=== PATIENT | female | born 1970 | race Hispanic/Latino ===

== ENCOUNTER 2016-05-18 13:11 | Day surgery (SDC) | payer OTHER ==
[~2016-05-18] VITALS: Ht 162.6 cm; Wt 76.0 kg
[~2016-05-18 13:11] MED LIST: 0.9% Sodium Chloride 1,000 ML IV SCH; CITA10TA9 PO; NAPR220C11 PO; POLY17PO6 PO; RIZA10TA26 PO; Sodium Chloride LOK Flush 10 mL Syringe IV PRN; fentaNYL-PF 50 mCg/mL 2 mL Inj IVPUSH PRN
[2016-05-18 13:53] VITALS: BP 107/68; PULSE 66; RESP 17; O2SAT 68
[2016-05-18 15:15] VITALS: BP 101/61; PULSE 72; RESP 14; O2SAT 98
[2016-05-18 15:27] VITALS: BP 101/60; PULSE 68; RESP 16; O2SAT 98
[2016-05-18 15:37] VITALS: BP 114/76; PULSE 68; RESP 16; O2SAT 99
--- NOTE | 2016-05-19 02:06 | ENDO ---
[address] [address] ENDOSCOPY PROCEDURE PATIENT: TEX GALVAN : 1970 MR#: [id number] ADMIT: 05/18/2016 JOB ID: [id number] PRIMARY PROVIDER: Irene Gomes MD PROCEDURE: Colonoscopy. INDICATIONS: A 45-year-old female with a tendency towards constipation over the last four years. There is a family history of colon cancer in a number of relatives including cousins and aunts. A colon cancer screening is therefore pursued. EQUIPMENT: [employer]-H180-AL. SEDATION: 5 mg Versed, 100 mcg fentanyl. COMPLICATIONS: None identified. BOWEL PREPARATION: Fair, adequate exam. PROCEDURE INFORMATION: After the risks and benefits were explained, written and verbal informed consent was obtained. The patient was brought into the endoscopy suite and placed into the left lateral decubitus position. Sedation was achieved using the above-stated medications with the addition of oxygen via nasal cannula. A digital rectal examination was accomplished and, besides mild internal hemorrhoids, no other pathology was appreciated. The scope was introduced into the rectum and advanced under direct visualization to the cecum as identified by the appendiceal orifice and ileocecal valve. The scope was slowly withdrawn to carefully examine the mucosa for any defects or lesions. Multiple direct views were made through the dentate line for exclusion of pathology. The colon was decompressed, the scope removed from the patient who tolerated the procedure well. FINDINGS: No significant polyps, mass lesions, or inflammatory features identified throughout. ENDOSCOPIC DIAGNOSES: 1. Minimal internal hemorrhoids. 2. Otherwise visually unremarkable colonoscopy to cecum. RECOMMENDATIONS: 1. Considering numerous relatives with a history of colon cancer, repeat colon cancer screening in five years' time. 2. In the interim, the patient is encouraged to engage in a regular bowel regimen as discussed in the office. 3. Follow up in my clinic in the next 6-8 weeks to review response. If there is still ongoing issues in spite of improved bowel habits with respect to reflux, then further interrogation/investigation may be warranted on that score.
== END 2016-05-18 23:59 | disposition home or self-care (01) ==
LOC: END 13:11
PROVIDERS: ATTEND Internal Medicine Gastroenterology
DX: Z12.11 Encounter for screening for malignant neoplasm of colon (principal); Z80.0 Family history of malignant neoplasm of digestive organs; R19.4 Change in bowel habit; E78.5 Hyperlipidemia, unspecified; M54.30 Sciatica, unspecified side; K64.8 Other hemorrhoids
CPT/HCPCS: G0105; G0500; J2250; J3010; J7030